=== PATIENT | female | born 1975 | race Caucasian/White ===

== ENCOUNTER 2017-04-15 19:30 | Emergency (ER) | payer OTHER ==
[~2017-04-15] VITALS: Ht 172.7 cm; Wt 83.9 kg
[~2017-04-15 19:30] MED LIST: ARMO120T PO; BACT800T5 PO; MOTR200T47 PO; [UNRECOGNIZED DRUG - OTHER] PO
[2017-04-15 19:32] VITALS: BP 124/71; PULSE 73; RESP 18; TEMP 98.2; O2SAT 100
--- NOTE | 2017-04-15 20:07 | PD ---
HPI Chief Complaint: Skin Problem Time Seen by Provider: 19:59 Travel History International Travel<30 days: No Contact w/Intl Traveler<30days: No Traveled to known affect area: No History of Present Illness HPI 41-year-old female presents to the emergency room for evaluation of right lower extremity edema for the past day. Patient states her symptoms started this morning when she woke up. She reports moderate pain localized to the lower ankle with radiation up the calf. Pain is worse with walking. She took Midol prior to arrival for pain. Patient states she states that the edema may have been caused from wearing her compression stockings to bed but her other leg is not affected. She is not on any blood thinners. She reports some redness in the area and is convinced she was bitten by either a bug or a snake. Reports minimal itching and burning. She denies trauma or injury. PFSH Past Medical History Hx Anticoagulant Therapy: No Cardiovascular Problems: Yes (FAMILY HISTORY, DAD OF HEART ATTACK IN 40'S) Chemotherapy: No Cerebrovascular Accident: No Diabetes: No Diminished Hearing: No Fibromyalgia: Yes Musculoskeletal: Yes (TMJ) Respiratory: No Immunizations Current: Yes Thyroid Disease: Yes Tetanus Vaccination: > 5 Years Influenza Vaccination: No ?: Not LMP: 04-05-17 : 0 Past Surgical History Hysterectomy: No Other Surgery: Yes (CYST REMOVED FROM LEG ) Social History Alcohol Use: Yes (SOCIALLY) Tobacco Use: No Substance Use: No Allergies-Medications (Allergen,Severity, Reaction): Coded Allergies: Penicillin (Verified Allergy, Intermediate, ANAPHYLAXIS, 04/15/17) Reported Meds & Prescriptions Reported Meds & Active Scripts Active Keflex (Cephalexin) 500 Mg Cap 500 Mg PO Q6H 10 Days Reported [lyothyrinone] 7.5 Mcg PO DAILY Review of Systems Except as stated in HPI: all other systems reviewed are Neg Physical Exam Narrative GENERAL: Well-nourished, well-developed female in no acute distress. Afebrile. Ambulatory. SKIN: Focused skin assessment warm/dry. No ecchymosis. There is a very mild, light area of erythema on the right lower, lateral ankle measures approximately 5 cm in diameter. There is no induration or edema. It is not warm. HEAD: Normocephalic. EYES: No scleral icterus. No injection or drainage. NECK: Supple, trachea midline. No JVD or lymphadenopathy. CARDIOVASCULAR: Regular rate and rhythm without murmurs, gallops, or rubs. RESPIRATORY: Breath sounds equal bilaterally. No accessory muscle use. EXTREMITY: Right ankle very mildly tender to palpation. 2+ pitting edema on the right foot. 2+ dorsalis pedis pulse. Full range of motion in right lower extremity. Data Data Last Documented VS Vital Signs Date Time Temp Pulse Resp B/P Pulse Ox O2 Delivery O2 Flow Rate FiO2 04/15/17 19:32 98.2 73 18 124/71 100 Orders Us Leg Venous Doppler (04/15/17 ) MDM Medical Decision Making Medical Screen Exam Complete: Yes Emergency Medical Condition: Yes Medical Record Reviewed: Yes Differential Diagnosis DVT versus medication side effect versus injury Narrative Course 41-year-old female presents to the emergency room for evaluation of right lower extremity edema, pain, and redness for the past day. Patient states she had similar symptoms in her left leg 1 week ago but those have resolved. She is concerned that the red area on her leg was caused by a bug. Patient insists that she has 2 puncture wounds in her skin. Physical exam reveals obvious moles with no puncture wound at the edge of the erythematous area. The erythema is not indurated, fluctuant, or hot. It is very mildly tender to palpation. No lymphangitis. More likely a reaction than infection. There is 2 + pitting edema of the right lower extremity but it is neurovascularly intact. Ultrasound is negative. Patient is ambulatory. Patient will be discharged with prescription for Keflex and told to follow-up with a primary care physician or return for worsening symptoms. She understands and agrees to plan. Diagnosis Primary Impression: Cellulitis of right lower leg Additional Impression: Edema of right lower extremity Referrals: Primary Care Physician Patient Instructions: Cellulitis (ED), General Instructions Additional Instructions: Rest and drink plenty of fluids. Take Keflex as directed, until gone.fore, this is okay. Follow up with a primary care physician. Return to emergency room for worsening symptoms, as discussed. Med/Other Pt SpecificInfo: Prescription(s) given Scripts Cephalexin (Keflex)500 Mg [id number] Mg PO Q6H 10 Days Ref 0 Prov:Jaron Rashid MD 04/15/17 Disposition: 01 DISCHARGE HOME Condition: Stable Nai Fish Apr 15, 2017 20:07
--- NOTE | 2017-04-15 21:12 | RADHPO ---
EXAM DATE/TIME: 04/15/2017 20:37 [facility] COMPARISON: No previous studies available for comparison. INDICATIONS : Right leg pain and swelling. MEDICAL HISTORY : Thyroid disease. TMJ. Fibromyalgia. SURGICAL HISTORY : Cyst removed from leg. ENCOUNTER: Initial ACUITY: 1 day PAIN SCORE: 10 LOCATION: Right leg. TECHNIQUE: Venous ultrasound of the leg was performed from the inguinal ligament to the proximal calf. Real-guido e, color Doppler and spectral tracing, compression and augmentation techniques were used. FINDINGS: There is normal compressibility of the deep venous system from the inguinal region to the proximal ca lf. No echogenic clot is seen in the lumen of the common femoral, femoral, popliteal, and posterior tibial veins. There is a normal response of the venous system to proximal and distal augmentation an d respiration. CONCLUSION: Normal examination. Feng Jose MD on April 15, 2017 at 21:09 Board Certified Radiologist. This report was verified electronically.
[2017-04-15] MEDS ORDERED: CEPH-460 PO (21:37)
== END 2017-04-15 21:54 | disposition home or self-care (01) ==
LOC: PHEFT 19:30
DX: L03.115 Cellulitis of right lower limb (principal); R60.0 Localized edema; E07.9 Disorder of thyroid, unspecified; Z87.39 Personal history of other diseases of the musculoskeletal system and connective tissue
CPT/HCPCS: 93971; 99284

== ENCOUNTER 2017-12-10 11:21 | Emergency (ER) | payer OTHER ==
[~2017-12-10] VITALS: Ht 172.7 cm; Wt 82.4 kg
[~2017-12-10 11:21] MED LIST changes: -ARMO120T PO; -BACT800T5 PO; +CEPH-460 PO; -MOTR200T47 PO
[2017-12-10 11:25] VITALS: BP 137/82; PULSE 110; RESP 16; TEMP 98.7; O2SAT 96
[2017-12-10] MEDS ORDERED: LIOT5TAB3 (11:44)
[2017-12-10] MEDS ORDERED: ARMO180T PO (11:44)
[2017-12-10] MEDS ORDERED: diphenhydrAMINE HCL 50 MG/ML VIAL IV PUSH ONE (12:00)
[2017-12-10] MEDS ORDERED: KETOROLAC TROMETHAMINE 30 MG/ML (IVP) VIAL IV PUSH ONE (12:00)
[2017-12-10] MEDS ORDERED: ACETAMINOPHEN 325 MG TAB PO ONE (12:15)
[2017-12-10] MEDS ORDERED: diphenhydrAMINE HCL 50 MG CAP PO ONE (12:15)
[2017-12-10 12:23] LABS: AUTOMATED NEUTROPHIL # 3.2 TH/MM3 (1.8-7.7); BASOPHIL % 0.6 % (0.0-2.0); EOSINOPHIL # 0.1 TH/MM3 (0-0.4); EOSINOPHIL % 1.5 % (0.0-4.0); HEMATOCRIT 43.4 % (35.0-46.0); HEMOGLOBIN 14.5 GM/DL (11.6-15.3); LYMPH % 30.4 % (9.0-44.0); LYMPHOCYTE # 1.6 TH/MM3 (1.0-4.8); MEAN CELL VOLUME 86.2 FL (80.0-100.0); MEAN CORPUSCULAR HEMOGLOBIN 28.7 PG (27.0-34.0); MEAN CORPUSCULAR HGB CONC 33.3 % (32.0-36.0); MEAN PLATELET VOLUME 9.6 FL (7.0-11.0); MONO % 5.8 % (0.0-8.0); MONOCYTE # 0.3 TH/MM3 (0-0.9); NEUT % 61.7 % (16.0-70.0); PLATELET COUNT 260 TH/MM3 (150-450); RED BLOOD COUNT 5.04 MIL/MM3 (4.00-5.30); WHITE BLOOD COUNT 5.2 TH/MM3 (4.0-11.0)
--- NOTE | 2017-12-10 12:30 | PD ---
HPI Chief Complaint: itching Time Seen by Provider: 11:47 Travel History International Travel<30 days: No Contact w/Intl Traveler<30days: No Traveled to known affect area: No History of Present Illness HPI 42yo F with PMH of fibromyalgia and hypothyroidism presents to the ED with multiple complaints. Pt said she slept facedown on her phone and woke up with her face swollen. She then took 1 claritin and swelling has improved. Said she now feels itchy and burning in her skin. Also has a burning sensation from the top of her head down. She googled and thinks she has a burn from sleeping on her phone. Denies any fever, visual changes, chest pain, sob, n/v, abdominal pain, focal weakness or numbness. She also wants me to check thyroid since she thinks she is taking too much iodine over the counter. PFSH Past Medical History Hx Anticoagulant Therapy: No Cardiovascular Problems: Yes (CHOL) Chemotherapy: No Cerebrovascular Accident: No Diabetes: No Diminished Hearing: No Fibromyalgia: Yes Musculoskeletal: Yes (TMJ) Respiratory: No Immunizations Current: Yes Thyroid Disease: Yes (Hypo) Tetanus Vaccination: Unknown Influenza Vaccination: No ?: Not : 0 Past Surgical History Hysterectomy: No Other Surgery: Yes (CYST REMOVED FROM LEG ) Social History Alcohol Use: Yes (SOCIALLY) Tobacco Use: No Substance Use: No Allergies-Medications (Allergen,Severity, Reaction): Coded Allergies: penicillin G (Unverified Allergy, Intermediate, ANAPHYLAXIS, 12/10/17) Reported Meds & Prescriptions Reported Meds & Active Scripts Active Reported Liothyronine (Liothyronine Sodium) 5 Mcg Tab 10 Mcg DAILY [facility] Thyroid (Thyroid) 180 Mg Tab 360 Mg PO DAILY Review of Systems Except as stated in HPI: all other systems reviewed are Neg Physical Exam Narrative GENERAL: 42yo F anxious appearing. SKIN: Her neck and chest is mildly flushed. HEAD: Atraumatic. Normocephalic. EYES: Pupils equal and round. No scleral icterus. No injection or drainage. ENT: No nasal bleeding or discharge. Mucous membranes pink and moist. NECK: Trachea midline. No JVD. CARDIOVASCULAR: Regular rate and rhythm. No murmur appreciated. RESPIRATORY: No accessory muscle use. Clear to auscultation. Breath sounds equal bilaterally. GASTROINTESTINAL: Abdomen soft, non-tender, nondistended. MUSCULOSKELETAL: No obvious deformities. No clubbing. No cyanosis. No edema. NEUROLOGICAL: Awake and alert. No obvious cranial nerve deficits. Motor grossly within normal limits. Normal speech. PSYCHIATRIC: Anxious. Data Data Last Documented VS Vital Signs Date Time Temp Pulse Resp B/P (MAP) Pulse Ox O2 Delivery O2 Flow Rate FiO2 12/10/17 14:34 12/10/17 13:00 70 98 12/10/17 11:25 98.7 16 Orders Orders Diphenhydramine Inj (Benadryl Inj) (12/10/17 12:00) Complete Blood Count With Diff (12/10/17 11:57) Basic Metabolic Panel (Bmp) (12/10/17 11:57) Thyroid Stimulating Hormone (12/10/17 11:57) Ketorolac Inj (Toradol Inj) (12/10/17 12:00) Diphenhydramine (Benadryl) (12/10/17 12:15) Acetaminophen (Tylenol) (12/10/17 12:15) Thyroxine (T4) (12/10/17 13:33) Ed Discharge Order (12/10/17 14:38) Labs Laboratory Tests Test 12/10/17 12:18 White Blood Count 5.2 TH/MM3 Red Blood Count 5.04 MIL/MM3 Hemoglobin 14.5 GM/DL Hematocrit 43.4 % Mean Corpuscular Volume 86.2 FL Mean Corpuscular Hemoglobin 28.7 PG Mean Corpuscular Hemoglobin Concent 33.3 % Red Cell Distribution Width 11.0 % Platelet Count 260 TH/MM3 Mean Platelet Volume 9.6 FL Neutrophils (%) (Auto) 61.7 % Lymphocytes (%) (Auto) 30.4 % Monocytes (%) (Auto) 5.8 % Eosinophils (%) (Auto) 1.5 % Basophils (%) (Auto) 0.6 % Neutrophils # (Auto) 3.2 TH/MM3 Lymphocytes # (Auto) 1.6 TH/MM3 Monocytes # (Auto) 0.3 TH/MM3 Eosinophils # (Auto) 0.1 TH/MM3 Basophils # (Auto) 0.0 TH/MM3 CBC Comment DIFF FINAL Differential Comment Blood Urea Nitrogen 15 MG/DL Creatinine 0.58 MG/DL Random Glucose 98 MG/DL Calcium Level 9.1 MG/DL Sodium Level 138 MEQ/L Potassium Level 4.0 MEQ/L Chloride Level 105 MEQ/L Carbon Dioxide Level 28.2 MEQ/L Anion Gap 5 MEQ/L Estimat Glomerular Filtration Rate 114 ML/MIN Thyroxine (T4) 11.3 MCG/DL Thyroid Stimulating Hormone 3rd Gen LESS THAN 0.005 uIU/ML MDM Medical Decision Making Medical Screen Exam Complete: Yes Emergency Medical Condition: Yes Differential Diagnosis Anxiety vs. hyperthyroidism vs. electrolyte abnormality Narrative Course 42yo F with multiple complaints. Pt is concern about radiation from her phone. There is no signs of keyes on her face or other parts of her body on physical exam. Labs reviewed, no leukocytosis. H/H normal. TSH low. T4 pending. BMP unremarkable. Pt has been taking a lot of iodine supplement. She does not want to wait for T4 result to come back and wants to leave now. Pt was given acetaminophen and diphenhydramine PO because she doesnt like needles. Said her itching improved. Pt has no facial swelling on exam. Pt instructed to follow up with primary care physician regarding low TSH. Return precautions given. Diagnosis Primary Impression: Low TSH level Patient Instructions: General Instructions Departure Forms: Tests/Procedures Additional Instructions: Please follow up with your primary care physician tomorrow regarding your low TSH level of less than 0.005 today. Return to the ED if symptoms worsen. Med/Other Pt SpecificInfo: No Change to Meds Disposition: 01 DISCHARGE HOME Condition: Stable Morena Daniels Dec 10, 2017 12:30
[2017-12-10 12:31] LABS: CHLORIDE 105 MEQ/L (98-107); SODIUM (NA) 138 MEQ/L (136-145)
[2017-12-10 12:33] LABS: CALCIUM 9.1 MG/DL (8.5-10.1)
[2017-12-10 12:34] LABS: BICARBONATE 28.2 MEQ/L (21.0-32.0); BLOOD UREA NITROGEN 15 MG/DL (7-18); GLUCOSE,RANDOM 98 MG/DL (74-106)
[2017-12-10 12:37] LABS: CREATININE 0.58 MG/DL (0.50-1.00); GLOMERULAR FILTRATION RATE 114 ML/MIN (>89)
[2017-12-10 13:00] VITALS: BP 98/56; PULSE 70; O2SAT 98
== END 2017-12-10 14:48 | disposition home or self-care (01) ==
LOC: PHED 11:21
DX: L29.9 Pruritus, unspecified (principal)
CPT/HCPCS: 80048; 84436; 84443; 85025; 99283; Q0163